=== PATIENT | female | born 1965 | race Caucasian/White ===

== ENCOUNTER 2022-04-26 19:58 | Emergency (ER) | payer OTHER, BC, SELFPAY ==
[2022-04-26 20:10] VITALS: BP 111/75; PULSE 89; RESP 18; TEMP 36.8; O2SAT 99; BMI 18.2
--- NOTE | 2022-04-26 20:58 | CRLHL7_ITS ---
For Patients: As a result of the Century Cures Act, medical imaging exams and procedure reports are released immediately into your electronic medical record. You may view this report before your referring provider. If you have questions, please contact your health care provider. INDICATION: Left wrist pain and swelling. TECHNIQUE: Three views of the left wrist. COMPARISON: None. IMPRESSION : There is mild soft tissue swelling about the wrist but no evidence of acute fracture or dislocation. Joint spaces are preserved. No chondrocalcinosis or erosions. Dictated by Twila Ogden MD @ 04/26/2022 10:03:19 PM (Electronically Signed)
[2022-04-26 22:50] VITALS: BP 113/74; PULSE 91; RESP 16
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
== END 2022-04-26 22:53 | disposition home or self-care (01) ==
PROVIDERS: Emergency Provider Family Medicine
DX: S60.212A Contusion of left wrist, initial encounter (principal); V43.52XA Car driver injured in collision with other type car in traffic accident, initial encounter
CPT/HCPCS: 29125; 73110; 99283; 99284

== ENCOUNTER 2023-06-21 07:59 | Outpatient (CLI) | payer OTHER, SELFPAY | END 2023-06-21 08:00 | disposition home or self-care (01) | PROVIDERS: PCP Internal Medicine; Visit Provider Family Medicine | DX: M51.36 Other intervertebral disc degeneration, lumbar region (principal); M54.16 Radiculopathy, lumbar region | CPT/HCPCS: 64483; J1100; Q9966 ==

== ENCOUNTER 2023-09-06 09:36 | Outpatient (CLI) | payer OTHER, SELFPAY | END 2023-09-06 09:37 | disposition home or self-care (01) | LOC: INJ CL 09:36 | PROVIDERS: PCP Internal Medicine; Visit Provider Family Medicine | DX: M54.16 Radiculopathy, lumbar region (principal); M51.36 Other intervertebral disc degeneration, lumbar region | CPT/HCPCS: 62323; J0702; Q9966 ==

== ENCOUNTER 2023-12-06 09:27 | Outpatient (CLI) | payer OTHER, SELFPAY | END 2023-12-06 09:28 | disposition home or self-care (01) | PROVIDERS: PCP Internal Medicine; Visit Provider Family Medicine | DX: M47.816 Spondylosis without myelopathy or radiculopathy, lumbar region (principal) | CPT/HCPCS: 64493; 64494; J0702; Q9966 ==